=== PATIENT | male | born 1970 | race Caucasian/White ===

== ENCOUNTER → 2016-06-19 | Outpatient (CLI) | payer BC ==
[2016-06-19 08:45] LABS: CHLORIDE,CL 102 mmol/L (98-110); SODIUM,NA 137 mmol/L (136-146)
== END ==
LOC: MW.CHFP 08:03
PROVIDERS: ATTEND Nurse Practitioner Family
DX: Z00.00 Encounter for general adult medical examination without abnormal findings (principal); Z87.39 Personal history of other diseases of the musculoskeletal system and connective tissue; R73.09 Other abnormal glucose
CPT/HCPCS: 36415; 80053; 80061; 83036; 84550